=== PATIENT | female | born 1965 | race Caucasian/White ===

== ENCOUNTER 2019-12-20 11:04 | Outpatient (REF) | payer BC, SELFPAY ==
--- NOTE | 2019-12-20 | MM_ITS ---
EXAMINATION: MM DIAGNOSTIC DIGITAL BREAST TOMOSYNTHESIS, BILATERAL CLINICAL INFORMATION: Due for yearly. Family history breast cancer in mother, age 50s. Also probable benign calcifications central left breast for follow-up. The lifetime risk of breast cancer based on the Tyrer-Cuzick Model is 27%. COMPARISON: Mammography: 05/29/2018, 11/20/2017, 11/13/2017 (BI-RADS 0), targeted left breast ultrasound 11/20/2018. TECHNIQUE: Digital breast tomosynthesis is performed in both the craniocaudal and mediolateral oblique views along with computer-aided detection (CAD). Synthesized 2D images are generated from the tomosynthesis. FINDINGS: There are scattered areas of fibroglandular density (ACR BI-RADS breast composition Category b). Breast tissue composition borders on heterogeneously dense. Left breast cysts noted previously is decreased and no longer clearly visualized. There is no significant mass or architectural abnormality. There are scattered punctate calcifications central and outer right breast and central left breast similar to prior studies. The left breast calcifications for follow-up are now considered benign. Results are provided to the patient at time of visit by the technologist. IMPRESSION: 1. No significant changes from prior studies. No mammographic evidence of malignancy. 2. Left breast calcifications for follow-up are now considered benign. ASSESSMENT: BI-RADS 2: Benign RECOMMENDATION: 1. Routine annual mammography screening. 2. The risk of breast cancer based on the Tyrer-Cuzick Model is 27%. Additional annual screening with breast MRI may be of benefit in women with a risk score of 20% or greater. This patient's information was entered into a reminder system with a target due date for their next mammogram.
== END 2019-12-20 11:05 | disposition home or self-care (01) ==
LOC: HO.MAMMO 11:04
PROVIDERS: PCP Hospitalist; Visit Provider Hospitalist
DX: R92.1 Mammographic calcification found on diagnostic imaging of breast (principal); Z80.3 Family history of malignant neoplasm of breast
CPT/HCPCS: 77062; 77066; 78013

== ENCOUNTER 2020-12-20 08:24 | Outpatient (REF) | payer BC, SELFPAY ==
--- NOTE | ~2020-12-20 | MM_ITS ---
EXAMINATION: MM SCREENING DIGITAL BREAST TOMOSYNTHESIS, BILATERAL CLINICAL INFORMATION: Screening. Asymptomatic. Family history breast cancer, mother. The lifetime risk of breast cancer based on the Tyrer-Cuzick Model is 24%. COMPARISON: Mammography: 12/20/2019, 11/20/2018, 05/29/2018, 11/30/2018, 11/13/2017 TECHNIQUE: Digital breast tomosynthesis is performed in both the craniocaudal and mediolateral oblique views along with computer-aided detection (CAD). Synthesized 2D images are generated from the tomosynthesis. FINDINGS: There are scattered areas of fibroglandular density (ACR BI-RADS breast composition Category b). Parenchymal pattern is similar to prior studies. There is no developing density or interval mass or architectural abnormality. Scattered punctate calcifications are again seen. There are no suspicious calcifications. The axilla and skin contours are unremarkable. No significant changes. MM/MM tomosynthesis screening BI IMPRESSION: No mammographic evidence of malignancy. ASSESSMENT: BI-RADS 2: Benign RECOMMENDATION: 1. Routine annual mammography screening. 2. The lifetime risk of breast cancer based on the Tyrer-Cuzick Model is 24%. Additional annual adjunct screening with breast MRI may be of benefit in women with a risk score of 20% or greater. This patient's information was entered into a reminder system with a target due date for their next mammogram.
== END 2020-12-20 08:25 | disposition home or self-care (01) ==
LOC: HO.MAMMO 08:24
PROVIDERS: PCP Hospitalist; Visit Provider Nurse Practitioner Adult Health
DX: Z12.31 Encounter for screening mammogram for malignant neoplasm of breast (principal)
CPT/HCPCS: 77063; 77067

== ENCOUNTER 2021-12-26 07:55 | Outpatient (REF) | payer BC, SELFPAY ==
--- NOTE | ~2021-12-26 | MM_ITS ---
EXAMINATION: MM SCREENING DIGITAL BREAST TOMOSYNTHESIS, BILATERAL CLINICAL INFORMATION: Screening. Asymptomatic. Family history breast cancer, mother. Prior excision fibroepithelial lesion lower left breast over 10 years ago. The lifetime risk of breast cancer based on the Tyrer-Cuzick Model is 23%. COMPARISON: Mammography: 12/20/2020, 12/20/2019, 11/20/2018 TECHNIQUE: Digital breast tomosynthesis is performed in both the craniocaudal and mediolateral oblique views along with computer-aided detection (CAD). Synthesized 2D images are generated from the tomosynthesis. FINDINGS: There are scattered areas of fibroglandular density (ACR BI-RADS breast composition Category b). There are no significant masses, abnormal calcifications, or other abnormalities. Parenchymal pattern is similar to prior studies. There is no developing density or architectural abnormality. The axilla and skin contours are unremarkable. No significant changes. MM/MM tomosynthesis screening BI IMPRESSION: No mammographic evidence of malignancy. ASSESSMENT: BI-RADS 1: Negative RECOMMENDATION: Routine annual mammography screening. This patient's information was entered into a reminder system with a target due date for their next mammogram.
== END 2021-12-26 07:56 | disposition home or self-care (01) ==
LOC: HO.MAMMO 07:55
PROVIDERS: PCP Family Medicine; Visit Provider Nurse Practitioner Family
DX: Z12.31 Encounter for screening mammogram for malignant neoplasm of breast (principal)
CPT/HCPCS: 77063; 77067

== ENCOUNTER 2023-01-08 07:55 | Outpatient (REF) | payer BC, SELFPAY | END 2023-01-08 07:56 | disposition home or self-care (01) | LOC: HO.MAMMO 07:55 | PROVIDERS: PCP Family Medicine; Visit Provider Family Medicine | DX: Z12.31 Encounter for screening mammogram for malignant neoplasm of breast (principal) | CPT/HCPCS: 77063; 77067 ==

== ENCOUNTER → 2023-01-08 08:00 | Outpatient (BNV) | payer BC, SELFPAY | PROVIDERS: PCP Family Medicine; Visit Provider Radiology Diagnostic Radiology | DX: Z12.31 Encounter for screening mammogram for malignant neoplasm of breast (principal) | CPT/HCPCS: 77063; 77067 ==

== ENCOUNTER → 2024-01-20 13:30 | Outpatient (BNV) | payer BC, SELFPAY | PROVIDERS: PCP Family Medicine; Visit Provider Radiology Diagnostic Radiology | DX: N63.21 Unspecified lump in the left breast, upper outer quadrant (principal) | CPT/HCPCS: 76642; 77062; 77066 ==

== ENCOUNTER 2024-01-20 13:31 | Outpatient (REF) | payer BC, SELFPAY ==
--- NOTE | ~2024-01-20 | US_ITS ---
EXAMINATION: MM DIAGNOSTIC DIGITAL BREAST TOMOSYNTHESIS, BILATERAL US BREAST LIMITED, LEFT MAMMOGRAPHY: CLINICAL INFORMATION: Diagnostic exam: Left breast lump 2:00 axis (axillary tail) felt by provider. Patient also due for yearly. COMPARISON: Mammography: 01/08/2023, 12/26/2021, 12/20/2020, and exams dating back to 2014. TECHNIQUE: Digital breast tomosynthesis is performed in both the craniocaudal and mediolateral oblique views along with computer-aided detection (CAD). Synthesized 2D images are generated from the tomosynthesis. In addition to standard views, 3-D spot compression left CC and MLO views were obtained of the palpable region of concern. FINDINGS: The breasts are heterogeneously dense, which may obscure small masses (ACR BI-RADS breast composition Category c). There are stable calcifications in the upper outer right breast, unchanged. There are no suspicious masses, suspicious grouped calcifications, or areas of architectural distortion in either breast. The overall parenchymal pattern is stable from prior exams. There is no skin or axillary abnormality. Area of palpable concern left low axilla/axillary tail o'clock region marked by the technologist with a BB, with the aid of the patient. After the ultrasound the actual palpable abnormality was approximately 5 cm closer to the nipple in the axillary tail region. In this region, there is a mammographically stable lobular mass measuring 8 mm in diameter (appears unchanged when compared with 2021 exam). This will be evaluated with ultrasound. ULTRASOUND: CLINICAL INFORMATION: As above. COMPARISON: None relevant. TECHNIQUE: Targeted sonographic evaluation was performed using a high frequency linear transducer. Attention was given to the upper outer quadrant left breast, to include the region of palpable concern. Selected archived documentation. FINDINGS: LEFT BREAST: At the 2:00 axis, left breast, there is a oval macrolobular complicated cysts, with good through transmission, no internal color Doppler flow, no surrounding parenchymal distortion, wider than tall, which measures 0.7 x 0.4 x 0.6 cm. This correlates well with the mammographic focus of concern, and palpable abnormality. This is probably benign. Six-month interval follow-up recommended. No additional abnormalities identified. US/US breast LT limited mamm only IMPRESSION: -No findings suspicious for malignancy in either breast. -Stable benign findings. -Palpable focus corresponds with a complicated probably benign cyst at the 2:00 axis, 9 cm from the nipple, measuring 7 mm maximal diameter. This has mammographically been stable since 2021. To be cautious, and six-month interval follow-up TARGETED LEFT BREAST ULTRASOUND recommended to ensure stability. OVERALL ASSESSMENT: Mammography: BI-RADS 3 - Probably benign finding(s) - 6 month follow-up suggested Ultrasound: BI-RADS 3 - Probably benign finding(s) - 6 month follow-up suggested RECOMMENDATION: 6 Month F/U This patient's information was entered into a reminder system with a target due date for their next mammogram. Electronically signed by: Neville Solis MD 01/20/2024 03:08 PM [facility]
== END 2024-01-20 13:32 | disposition home or self-care (01) ==
LOC: HO.MAMMO 13:31
PROVIDERS: PCP Family Medicine; Visit Provider Nurse Practitioner Adult Health
DX: N63.21 Unspecified lump in the left breast, upper outer quadrant (principal); N60.02 Solitary cyst of left breast
CPT/HCPCS: 76642; 77062; 77066

== ENCOUNTER 2024-07-20 08:56 | Outpatient (REF) | payer BC, SELFPAY ==
--- NOTE | ~2024-07-20 | US_ITS ---
EXAMINATION: US DIAGNOSTIC ULTRASOUND BREAST, LEFT CLINICAL INFORMATION: Left breast follow-up solid mass versus complicated cyst.. COMPARISON: Comparison is made with relevant prior imaging. TECHNIQUE: Ultrasound of the breast is performed with real-time barraza scale imaging and color Doppler. FINDINGS: Targeted color Doppler ultrasound scanning at 2:00 9 cm from the nipple again demonstrates a hypoechoic oval parallel circumscribed solid mass versus complicated cyst measuring 6 x 7 x 3 mm not significant change from prior ultrasound 6 months ago. Results are discussed with the patient at time of visit. US/US breast LT limited mamm only IMPRESSION: Hypoechoic oval solid mass versus complicated cyst in the left breast at 2:00 9 cm from nipple not significantly changed from ultrasound 6 months ago. Probably benign. Recommend 6 month follow-up for further evaluation of stability. ASSESSMENT: BI-RADS 3: Probably Benign RECOMMENDATION: Diagnostic mammography in 6 months. This patient's information was entered into a reminder system with a target due date for their next mammogram. Electronically signed by: Renetta Hernández DO 07/20/2024 09:56 AM EDT
--- OUTSIDE RECORDS SUMMARY | 2024-07-20 09:33 | XMS_ITS | Clinical Summary ---
Author Organization [facility] [employer] [facility] Address [address] [place] [address] Phone Care Team Providers Care Clinical Account Executive Name Role Phone Mauricio Corona MD Primary Care Provider +1- [phone] Allergies Active Allergy Reactions Criticality Noted Date Comments Codeine 06/27/2021 Medications cetirizine (ZyrTEC) 10 mg tablet Take 1 tablet (10 mg total) by mouth. Active estradioL (ESTRACE) 0.01 % (0.1 mg/gram) vaginal cream Insert 1 g into the vagina. Active ibuprofen (ADVIL,MOTRIN) 800 mg tablet Take 1 tablet (800 mg total) by mouth. Active multivitamin (MULTIPLE VITAMINS ORAL) Take 1 tablet by mouth 1 (one) time each day. Active Active Problems Problem Noted Date Diagnosed Date Dyspnea 06/29/2021 Overview (12/26/2023): Last Assessment & Plan: Her dyspnea has been stable. She is been exercising throughout the summer and with the level of exertion she has been doing she is felt well. Palpitations 06/27/2021 Overview (12/26/2023): W/ DYSPNEA Last Assessment & Plan: Her palpitations are stable. She did have 1 PVC on her EKG today. She states that these have been under better control. We will continue to monitor. We again reviewed triggers for these. She will continue to monitor these and try to improve them. If they worsen she will let us know. We had discussed using a as needed metoprolol. She did not get this filled. She will let us know if things worsen. At this point we will monitor. She is up-to-date on her testing. She had an echocardiogram last year which was normal. She had a Holter monitor at that time as well. This showed 1.6% PVCs. Assessment & Plan (02/02/2024 2:58 PM EST): The patient has a longstanding history of symptoms of palpitations due to symptomatic PVCs. She completed an extensive cardiac evaluation in 2021 that included an echocardiogram which did not show any significant structural heart disease, a stress test that was normal, and a Holter monitor that showed PVCs with a frequency of 1.6%. Of note, the patient reported symptoms of palpitations during the Holter monitor which correlated with the presence of isolated PVCs. On today's visit, the patient stated that her episodes of palpitations are only happening occasionally and only last for a few seconds per episode. She feels that her episodes of palpitations are better after she was able to reduce her stress when she retired. She is also hydrating better. As such, we will continue lifestyle modifications for her symptomatic PVCs. No indication for beta-ilda therapy at this point given the low frequency of PVCs, absence of structural heart disease, and improved symptoms with lifestyle modifications. Orders: ECG 12 lead Hypertriglyceridemia 06/27/2021 Overview (12/26/2023): Last Assessment & Plan: She is due for a lipid check and I have ordered lipids for her. Surgical History Surgery Date Site/Laterality Comments BREAST LUMPECTOMY Left SECTION COLONOSCOPY 03/17/2019 - 03/16/2020 TONSILLECTOMY Medical History Medical History Date Comments Eczema Exercise-induced asthma Family history of malignant neoplasm of breast i n first degree relative Headache Increased risk of breast cancer Perennial allergic rhinitis Sensation of foreign body in eye Family History Medical History Relation Name Comments Hypertension Father Diabetes Maternal Grandmother Breast cancer Mother Other (Conversion) Mother systemic lupus erythemstosus Coronary artery disease Paternal Grandmother Relation Name Status Comments Father Maternal Grandmother Mother Paternal Grandmother Social History Tobacco Use Types Packs/Day Years Used Date Smoking Tobacco: Never Smokeless Tobacco: Never Tobacco Cessation:Counseling Given: Not Answered Alcohol Use Standard Drinks/Week Comments Yes 0 (1 standard drink = 0.6 oz pur e alcohol) 1-2 a month Comments Unknown Sex and Gender Information Value Date Recorded Sex Assigned at Not on file Legal Sex Female 3:26 PM EST Gender Identity Not on file Sexual Orientation Not on file Obstetrics History Last Filed Vital Signs Vital Sign Reading Time Taken Comments Blood Pressure 110/70 02/02/2024 10:11 AM EST Pulse 75 02/02/2024 10:11 AM EST Temperature - - Respiratory Rate - - Oxygen Saturation 98% 02/02/2024 10: 11 AM EST Inhaled Oxygen Concentration - - Weight 55.7 kg (122 lb 11.2 oz) 024 10:11 AM EST Height 165.1 cm (5' 5 ) 02/02/2024 10:1 1 AM EST Body Mass Index 20.42 02/02/2024 10:11 AM EST Plan of Treatment Health Maintenance Due Date Last Done Comments Breast Cancer Screening 1967 Hepatitis B Vaccines (1 of 3 - 19+ 3-dose series) 1986 Pneumococcal Vaccine: 50+ Years (1 of 2 - PCV) 1986 Pneumococcal Vaccine: Pediatrics (0 to 5 Years) and At-Risk Patients (6 to 64 Years) (1 of 2 - PCV) 1986 Cervical Cancer Screening: Pap Smear 1988 Zoster Vaccines (1 of 2) 2017 Cholesterol Screening (Lipid Panel) 02/24/2022 Colorectal Cancer Screening: Colonoscopy 02/24/2022 Depression Screening 02/24/2022 HIV Screening 02/24/2022 Hepatitis C Screening 02/24/2022 Social Influencers of Health Screening 02/24/2022 COVID-19 Vaccine ( season) 2023 10/26/2020, 06/26/2020, 06/07/2020 Influenza Vaccine (Season Ended) 2024 01/05/2021, 12/22/2019, 12/24/2017, Additional history exists DTaP,Tdap,and Td Vaccines (3 - Td or Tdap) 11/09/2033 11/10/2023, 12/22/2018 HIB Vaccines Aged Out No longer eligi ble based on patient's age to complete this topic HPV Vaccines Aged Out No longer eligi ble based on patient's age to complete this topic Hepatitis A Vaccines Aged Out No long er eligible based on patient's age to complete this topic IPV Vaccines Aged Out No longer eligi ble based on patient's age to complete this topic MMR Vaccines Aged Out No longer eligi ble based on patient's age to complete this topic Meningococcal ACWY Vaccine Aged Out N o longer eligible based on patient's age to complete this topic Meningococcal B Vaccine Aged Out No l onger eligible based on patient's age to complete this topic RSV Immunization Patients Under 20 months Aged Out No longer eligible based on patient's age to complete this topic Varicella Vaccines Aged Out No longer eligible based on patient's age to complete this topic Insurance [facility] Care Teams Clinical Account Executive Relationship Specialty Start Date End Date Mauricio Corona MD [address] [place] [id number] PCP - General Internal Medicine 05/22/21
== END 2024-07-20 08:57 | disposition home or self-care (01) ==
LOC: HO.MAMMO 08:56
PROVIDERS: PCP Family Medicine; Visit Provider Nurse Practitioner Adult Health
DX: N60.02 Solitary cyst of left breast (principal)
CPT/HCPCS: 76642

== ENCOUNTER → 2024-07-20 09:00 | Outpatient (BNV) | payer BC, SELFPAY | PROVIDERS: PCP Family Medicine; Visit Provider Internal Medicine | DX: N63.21 Unspecified lump in the left breast, upper outer quadrant (principal) | CPT/HCPCS: 76642; 77065 ==

== ENCOUNTER 2024-11-02 10:41 | Outpatient (AMB) | payer BC, SELFPAY ==
--- OUTSIDE RECORDS SUMMARY | 2024-11-02 12:07 | XMS_ITS | Clinical Summary ---
Author Organization [facility] [employer] [facility] Address [address] [place] [address] Phone Care Team Providers Care Rough Rice Tender Name Role Phone Mauricio Corona MD Primary Care Provider +1- [phone] Allergies Active Allergy Reactions Criticality Noted Date [...] Years (1 of 2 - PCV) 1986 Cervical Cancer Screening: Pap Smear 1988 Zoster Vaccines (1 of 2) 2017 Cholesterol Screening (Lipid Panel) 02/24/2022 Colorectal Cancer Screening: Colonoscopy 02/24/2022 HIV Screening 02/24/2022 Hepatitis C Screening 02/24/2022 Social Influencers of Health Screening 02/24/2022 COVID-19 Vaccine ( season) 2023 10/26/2020, 06/26/2020, 06/07/2020 Depression Screening 03/17/2024 Influenza Vaccine (#1) 2024 , 12/22/2019, 12/24/2017, Additional history exists DTaP,Tdap,and Td [...] patient's age to complete this topic Insurance [facility] Care Teams Rough Rice Tender Relationship Specialty Start Date End Date Mauricio Corona MD [address] [phone] PCP - General Internal Medicine 05/22/21
== END 2024-11-02 10:50 | disposition home or self-care (01) ==
LOC: HO.HMGAL 10:41
PROVIDERS: PCP Family Medicine; Visit Provider Registered Nurse Emergency
DX: J30.89 Other allergic rhinitis (principal)
CPT/HCPCS: 95117; 95165

== ENCOUNTER 2024-11-22 11:48 | Outpatient (AMB) | payer BC, SELFPAY ==
--- OUTSIDE RECORDS SUMMARY | 2024-11-22 14:24 | XMS_ITS | Clinical Summary ---
Author Organization [facility] [employer] [facility] Address [address] [place] [address] Phone Care Team Providers Care Electrician Radio Name Role Phone Mauricio Corona MD Primary Care Provider +1- [phone] Allergies Active Allergy Reactions Criticality Noted Date [...] 02/24/2022 Social Influencers of Health Screening 02/24/2022 Depression Screening 03/17/2024 COVID-19 Vaccine ( - season) 2024 10/26/2020, 06/26/2020, 06/07/2020 Influenza Vaccine (#1) 2024 , 12/22/2019, 12/24/2017, [...] patient's age to complete this topic Insurance [facility] Care Teams Electrician Radio Relationship Specialty Start Date End Date Mauricio Corona MD [address] [phone] PCP - General Internal Medicine 05/22/21
== END 2024-11-22 11:56 | disposition home or self-care (01) ==
LOC: HO.HMGAL 11:48
PROVIDERS: PCP Family Medicine; Visit Provider Registered Nurse Emergency
DX: J30.89 Other allergic rhinitis (principal)
CPT/HCPCS: 95117; 95165

== ENCOUNTER 2024-12-06 09:08 | Outpatient (AMB) | payer BC, SELFPAY ==
--- OUTSIDE RECORDS SUMMARY | 2024-12-06 10:43 | XMS_ITS | Clinical Summary ---
Author Organization [facility] [employer] [facility] Address [address] [place] [address] Phone Care Team Providers Care Agricultural Research Technician Name Role Phone Mauricio Corona MD Primary Care Provider +1- [phone] Allergies Active Allergy Reactions Criticality Noted Date [...] patient's age to complete this topic Insurance [facility] Care Teams Agricultural Research Technician Relationship Specialty Start Date End Date Mauricio Corona MD [address] [phone] PCP - General Internal Medicine 05/22/21
== END 2024-12-06 09:09 | disposition home or self-care (01) ==
LOC: HO.HMGAL 09:08
PROVIDERS: PCP Family Medicine; Visit Provider Registered Nurse Emergency
DX: J30.89 Other allergic rhinitis (principal)
CPT/HCPCS: 95117; 95165

== ENCOUNTER 2024-12-22 09:40 | Outpatient (AMB) | payer BC, SELFPAY | END 2024-12-22 10:23 | disposition home or self-care (01) | LOC: HO.HMGAL 09:40 | PROVIDERS: PCP Family Medicine; Visit Provider Registered Nurse Emergency | DX: J30.89 Other allergic rhinitis (principal) | CPT/HCPCS: 95117; 95165 ==

== ENCOUNTER 2025-01-03 15:36 | Outpatient (AMB) | payer BC, SELFPAY | END 2025-01-03 15:36 | disposition home or self-care (01) | LOC: HO.HMGAL 15:36 | PROVIDERS: PCP Family Medicine; Visit Provider Registered Nurse Emergency | DX: J30.89 Other allergic rhinitis (principal) | CPT/HCPCS: 95117; 95165 ==

== ENCOUNTER 2025-01-17 15:38 | Outpatient (AMB) | payer BC, SELFPAY ==
--- OUTSIDE RECORDS SUMMARY | 2025-01-17 16:49 | XMS_ITS | Clinical Summary ---
Author Organization [facility] [employer] [facility] Address [address] [place] [address] Phone Care Team Providers Care Microsoft Windows Engineer Name Role Phone Mauricio Corona MD Primary Care Provider +1- [phone] Allergies Active Allergy Reactions Criticality Noted Date [...] Last Done Comments Breast Cancer Screening 1965 Colorectal Cancer Screening: Colonoscopy 1967 Hepatitis B Vaccines (1 of 3 - 19+ 3-dose series) 1986 Pneumococcal Vaccine: 50+ Years (1 of 2 - PCV) 1986 Cervical Cancer Screening: Pap Smear 1988 RSV Immunization Adult Patients (1 - Risk 50-74 years 1-dose series) 2017 Zoster Vaccines (1 of 2) 2017 Cholesterol Screening (Lipid Panel) 02/24/2022 HIV Screening 02/24/2022 Hepatitis C Screening 02/24/2022 Social Influencers of Health Screening 02/24/2022 Depression Screening 03/17/2024 COVID-19 Vaccine ( season) 2024 10/26/2020, 06/26/2020, 06/07/2020 Influenza Vaccine [...] patient's age to complete this topic Insurance [facility] Care Teams Microsoft Windows Engineer Relationship Specialty Start Date End Date Mauricio Corona MD [facility] [phone] PCP - General Internal Medicine 05/22/21
== END 2025-01-17 15:38 | disposition home or self-care (01) ==
LOC: HO.HMGAL 15:38
PROVIDERS: PCP Family Medicine; Visit Provider Registered Nurse Emergency
DX: J30.89 Other allergic rhinitis (principal)
CPT/HCPCS: 95117; 95165

== ENCOUNTER 2025-01-25 08:21 | Outpatient (REF) | payer BC, SELFPAY ==
--- NOTE | ~2025-01-25 | US_ITS ---
EXAMINATION(S): 1. MM DIAGNOSTIC DIGITAL BREAST TOMOSYNTHESIS, BILATERAL 2. TARGETED ULTRASOUND OF THE BILATERAL BREASTS CLINICAL INFORMATION: -This is a 6-month follow-up of left breast solid mass or complicated cyst at 2 o'clock position at 9 cm from the nipple, correlating with the palpable concern and mammographic finding described on January 20, 2024. -Patient describes bilateral lumps for three months. -Personal history of left breast ultrasound-guided needle core biopsy of mass at 6 o'clock position 2 cm from the nipple on May 07, 2007, with pathology results showing fibroepithelial lesion. COMPARISON: Comparison made to multiple prior mammograms, most recent January 20, 2024, and most remote May 29, 2018. Left breast ultrasound on January 20, 2024 and July 20, 2024. TECHNIQUE: Digital breast tomosynthesis is performed in both the mediolateral oblique and craniocaudal views along with computer-aided detection (CAD). Synthesized 2D images are generated from the tomosynthesis. A skin BB marker was placed at the location of the palpable concern in each breast as directed by the patient. FINDINGS: BREAST COMPOSITION: The breasts are heterogeneously dense, which may obscure small masses. RIGHT BREAST: No significant masses, suspicious calcifications or other abnormalities are seen. In particular, no suspicious mammographic findings adjacent to the skin BB marker placed in the upper breast posterior depth overlying the pectoralis muscle on the MLO view. Targeted ultrasound of the right breast was performed at the location of the palpable concern as indicated by the patient. The survey centered at 10 o'clock position at 10 cm from the nipple did not reveal suspicious sonographic findings. LEFT BREAST: No significant masses, suspicious calcifications or other abnormalities are seen. In particular, no suspicious mammographic findings adjacent to the skin BB marker placed in the upper outer quadrant posterior depth. Targeted ultrasound of the left breast was performed at the location of the palpable concern as indicated by the patient. The survey centered along the 2 o'clock axis did not reveal suspicious sonographic findings. Targeted ultrasound of left breast was performed at the location of previously described sonographic finding. The survey shows a 0.6 x 0.3 x 0.5 cm solid mass or complicated cyst at 2 o'clock position 9 cm from the nipple. Prior measurements were 0.7 x 0.4 x 0.6 cm in January 2024 and 0.8 x 0.3 x 0.6 cm in July 2024. US/US Breast BI Limited Mamm Only IMPRESSION: RIGHT BREAST: Negative, no evidence of malignancy. In particular, no imaging findings to accounts for patient's palpable concern. Clinical follow-up is recommended. Otherwise, normal interval follow-up mammogram is recommended in 12 months. LEFT BREAST: -No imaging findings to accounts for patient's palpable concern. Clinical follow-up is recommended. -Left breast solid mass or complicated cyst at 2 o'clock position 9 cm from the nipple, that appears relatively smaller since January 2024. Probably benign. A 12 month follow-up is recommended as bilateral diagnostic mammogram and left breast ultrasound. ASSESSMENT: BI-RADS: Category 3: Probably benign RECOMMENDATION: 12 month diagnostic follow up Results were provided to the patient at time of visit by the technologist. Electronically signed by: Mami Pal MD 01/25/2025 12:48 PM [facility] [place]
--- OUTSIDE RECORDS SUMMARY | 2025-01-25 08:29 | XMS_ITS | Clinical Summary ---
Author Organization [facility] [employer] [facility] Address [address] [place] [address] Phone Care Team Providers Care Line Maintenance Technician Name Role Phone Mauricio Corona MD Primary Care Provider +1- [phone] Allergies Active Allergy Reactions Criticality Noted Date [...] patient's age to complete this topic Insurance [facility] Care Teams Line Maintenance Technician Relationship Specialty Start Date End Date Mauricio Corona MD [facility] [place] [phone] PCP - General Internal Medicine 05/22/21
== END 2025-01-25 08:22 | disposition home or self-care (01) ==
LOC: HO.MAMMO 08:21
PROVIDERS: PCP Nurse Practitioner Adult Health; Visit Provider Nurse Practitioner Adult Health
DX: N60.02 Solitary cyst of left breast (principal); N63.11 Unspecified lump in the right breast, upper outer quadrant
CPT/HCPCS: 76642; 77062; 77066

== ENCOUNTER → 2025-01-25 08:30 | Outpatient (BNV) | payer BC, SELFPAY | PROVIDERS: PCP Nurse Practitioner Adult Health; Visit Provider Radiology Body Imaging | DX: N63.21 Unspecified lump in the left breast, upper outer quadrant (principal) | CPT/HCPCS: 76642; 77062; 77066 ==

== ENCOUNTER 2025-01-31 09:21 | Outpatient (AMB) | payer BC, SELFPAY | END 2025-01-31 09:22 | disposition home or self-care (01) | LOC: HO.HMGAL 09:21 | PROVIDERS: PCP Nurse Practitioner Adult Health; Visit Provider Registered Nurse Emergency | DX: J30.89 Other allergic rhinitis (principal) | CPT/HCPCS: 95117; 95165 ==

== ENCOUNTER 2025-02-21 10:14 | Outpatient (AMB) | payer BC, SELFPAY | END 2025-02-21 10:15 | disposition home or self-care (01) | LOC: HO.HMGAL 10:14 | PROVIDERS: PCP Family Medicine; Visit Provider Registered Nurse Emergency | DX: J30.89 Other allergic rhinitis (principal) | CPT/HCPCS: 95117; 95165 ==